=== PATIENT | female | born 1950 | race Caucasian/White ===

== ENCOUNTER → 2017-12-23 | Outpatient (CLI) | payer MEDICARE | END | disposition home or self-care (01) | LOC: KCIC US 09:16 | DX: R31.9 Hematuria, unspecified (principal); I10 Essential (primary) hypertension; E78.00 Pure hypercholesterolemia, unspecified | CPT/HCPCS: 76770 ==

== ENCOUNTER → 2018-01-23 | Outpatient (CLI) | payer MEDICARE ==
[~2018-01-23] MED LIST: IOHEXOL 300 MG/ML 100ML VIAL. IV
[2018-01-23 13:35] LABS: ISTAT CREATININE 0.7 mg/dL (0.6-1.1)
== END | disposition home or self-care (01) ==
LOC: KCIC CT 11:38
DX: K76.0 Fatty (change of) liver, not elsewhere classified (principal); R16.0 Hepatomegaly, not elsewhere classified
CPT/HCPCS: 74178; 82565

== ENCOUNTER → 2018-03-06 | Outpatient (CLI) | payer MEDICARE | END | disposition home or self-care (01) | LOC: KCIC US 08:20 | DX: Z12.31 Encounter for screening mammogram for malignant neoplasm of breast (principal); N95.0 Postmenopausal bleeding; I10 Essential (primary) hypertension; E78.00 Pure hypercholesterolemia, unspecified | CPT/HCPCS: 76830; 76856; 77063; 77067 ==

== ENCOUNTER → 2020-12-06 | Outpatient (CLI) | payer MEDICARE ==
[~2020-12-06] MED LIST changes: -IOHEXOL 300 MG/ML 100ML VIAL. IV; +TIMO10DR5 EACHEYE
--- NOTE | 2020-12-06 12:39 | KCIC ---
Bilateral digital screening mammograms: Reason for examination: Routine screening. Comparison is made to previous studies dated 03/06/2018 and 01/24/2016. Interpretation is made with the benefit of CAD. The skin and nipples show no abnormalities. No abnormal lymph nodes are seen. The breast parenchyma i s predominantly fatty. (Breast density: Category A.) There continues to be a small circumscribed nodu le at the 2:00 C position of the left breast consistent with a small intramammary lymph node. There i s however a new nodular density at the 3:00 position of the left breast approximately 3 cm from the n ipple. Further evaluation with ultrasound is recommended. There are no other new dominant masses, serge picious calcifications or architectural distortions. Impression: 8 mm nodular density at the 3:00 position approximately 3 cm from the nipple in the left breast. Darek mmend further evaluation with ultrasound. BI-RADS Category 0: Incomplete. Needs additional imaging evaluation. "Our facility is accredited by the [employer] Mammography [employer]." This patient's information has been entered into a reminder system for the patient to be notified wit h the results of her examination and a target date for the next mammogram. Electronically signed by: Nidia Cheng MD (12/06/2020 12:36 PM) [email or web address]
== END ==
LOC: KCIC MAMMO 11:00
PROVIDERS: ATTEND Family Medicine
DX: Z12.31 Encounter for screening mammogram for malignant neoplasm of breast (principal); N64.89 Other specified disorders of breast
CPT/HCPCS: 77067

== ENCOUNTER → 2020-12-13 | Outpatient (CLI) | payer MEDICARE ==
--- NOTE | 2020-12-13 09:05 | KCIC ---
US BREAST LT Clinical Indication: Reason: CALLBACK ABNORMAL MAMM Comparison: Bilateral mammogram December 06, 2020 and March 06, 2018. TECHNIQUE: Real-time ultrasound imaging of the left breast is performed. Findings: At the 3:00 position 3 cm from the nipple there is a dense, echogenic ridge with mild ductal ectasia. This may account for the mammogram appearance. No solid mass or architectural distortion is identifi ed. There are no abnormal axillary lymph nodes. IMPRESSION: 1. No solid mass or architectural distortion is identified. Recommend six-month follow-up left diagn ostic mammogram with routine and spot compression views. 2. BI-RADS Category 3, probably benign. Electronically signed by: Mark Gallo MD (12/13/2020 9:02 AM) [email or web address]
== END ==
LOC: KCIC US 08:12
PROVIDERS: ATTEND Family Medicine
DX: R92.8 Other abnormal and inconclusive findings on diagnostic imaging of breast (principal); N60.42 Mammary duct ectasia of left breast
CPT/HCPCS: 76641

== ENCOUNTER → 2021-06-08 | Outpatient (CLI) | payer MEDICARE ==
--- NOTE | 2021-06-08 10:08 | KCIC ---
Left breast diagnostic digital mammograms: Reason for examination: Follow-up nodular asymmetry. Comparison is made to previous study dated 12/06/2020 Interpretation was made with the benefit of CAD. The skin and nipple show no abnormalities. No abnormal axillary lymph nodes are seen. The breast pare nchyma shows scattered fibroglandular density. (Breast density: Category B.) There continues to be a small focus of nodular asymmetry. This however probably represents some superimposition of tissues. T here also continues be a small density in the upper outer quadrant which is stable and may represent a skin lesion. There are no other dominant masses, suspicious calcifications or architectural distort ions. Impression: Small parenchymal asymmetry at the 3:00 position 3 cm from the nipple which may represent superimpose d tissues. Ultrasound to follow. BI-RADS Category 0: Incomplete. Needs additional imaging evaluation. Left breast ultrasound: Comparison is made to previous study dated 12/13/2020. Ultrasound examination of the left breast and axilla was performed. No discrete cystic or solid nodul e is seen. No abnormal appearing lymph nodes are seen in the left axilla. IMPRESSION: No focal abnormality seen in the left breast sonographically. Recommend routine mammographic follow-u p. BI-RADS Category 2: Benign. "Our facility is accredited by the [employer] Mammography [employer]." This patient's information has been entered into a reminder system for the patient to be notified wit h the results of her examination and a target date for the next mammogram. Electronically signed by: Nidia Cheng MD (06/08/2021 10:06 AM) [email or web address]
== END ==
LOC: KCIC MAMMO 08:47
PROVIDERS: ATTEND Family Medicine
DX: R92.8 Other abnormal and inconclusive findings on diagnostic imaging of breast (principal)
CPT/HCPCS: 76641; 77065